=== PATIENT | male | born 1975 | race Caucasian/White ===

== ENCOUNTER 2019-07-23 12:45 | Emergency (ER) | payer OTHER ==
--- OUTSIDE RECORDS SUMMARY | 2019-07-23 12:48 | XMS REPORT | Clinical Summary ---
:[address] [facility] Address [address] [place] [address] Care Team Providers Name Role Phone Kameron Primary Care Provider Allergies No Known Allergies Medications Medication Sig Dispensed Refills Start Date End Date Status amlodipine-benazepril Take 1 capsule by 0 Active (LOTREL) 5-40 mg per mouth daily. capsule ibuprofen Take 800 mg by 0 Activ e (ADVIL,MOTRIN) 800 MG mouth every 6 tablet (six) hours as needed for Pain. traMADol (ULTRAM) 50 Take 50 mg by 0 Active mg tablet mouth every 6 (six) hours as needed for Pain. tiZANidine (ZANAFLEX) Take 4 mg by mouth 0 Active 4 MG tablet every 6 (six) hours as needed. Active Problems Problem Noted Date Pain 03/19/2017 Upper back pain on right side 03/18/2017 Essential hypertension 03/18/2017 Radicular pain 03/17/2017 Social History Tobacco Use Types Packs/Day Years Used Date Never Smoker Smokeless Tobacco: Never Used Sex Assigned at Date Recorded Not on file Job Start Date Occupation Industry Not on file Not on file Not on file Travel History Travel Start Travel End No recent travel history available. Last Filed Vital Signs Not on file Plan of Treatment Not on file Implants Implanted Type Area Assembler For Puller Over Hand Device Shelf Model / Identifier Expiration Serial / Date Lot Tiss Live Puty Dbm Optium 1cc Tput01 - [id number] Bone N/A: Spine LIFENET:LIFENET 08/06/2019 [id number] / Implanted: Qty: 1 on 03/23/2017 by Shubham Adames MD Cervical TRANSPLANT SRV [id number] / Matrix Floseal Hemo W/O Ndl 10 [id number] - [id number] Cement/Fi N/A: Spine JIMENEZ:BIOSCI 08/04/2018 [id number] / Implanted: Qty: 1 on 03/23/2017 by Shubham Adames MD lle r/Adhe Cervical / sive [id number] Bone Grft Vitoss Ba2x 1.2cc - [id number] Cement/Fi N/A: Spine ORTHOVI TA 06/20/2018 [id number] / Implanted: Qty: 1 on 03/23/2017 by Shubham Adames MD lle r/Adhe Cervical / sive [id number] Tritanium C [id number] Anterior Cervical Cage Spine N/A: Spine CHAN:CHAN 12/15/2021 [id number] / Implanted: Qty: 1 on 03/23/2017 by Shubham Adames MD Cervical SPINE / [id number] Plt Aviater 12mm [id number] - [id number] Spine N/A: Spine CHAN:STR YKER [id number] / Implanted: Qty: 1 on 03/23/2017 by Shubham Adames MD Cervical ORTHOPAEDICS / Scr Sd 14mm [id number] - [id number] Spine N/A: Spine CHAN:CHAN [id number] / Implanted: Qty: 4 on 03/23/2017 by Shubham Adames MD Cervical ORTHOPAEDICS / Results Not on fileafter 07/22/2018 Insurance Payer Benefit Plan / Group Subscriber ID Type Phone A ddress [employer] - [employer] CARE [employer] HMO POS QPOS xxxxxxxxx HMO/POS Advance Directives For more information, please contact:[address] [phone] Code Status Date Activated Date Inactivated Comments Full Code 03/17/2017 9:35 PM 03/24/2017 2:46 PM This code status was determined by: Patient
--- OUTSIDE RECORDS SUMMARY | 2019-07-23 12:48 | XMS REPORT ---
:1975 Author Organization [facility] t Address [address] Ern[place] [address] [place] [id number] Care Team Providers Name Role Phone Dick BOYD Attending Clinician Unavailable Dick BOYD Admitting Clinician Unavailable Problems This patient has no known problems. Allergies, Adverse Reactions, Alerts This patient has no known allergies or adverse reactions. Medications This patient has no known medications. Procedures This patient has no known procedures. Results Test Description Test Time Test Comments Results Result [facility] e Comments SHORT-LATENCY INTRAOPERATIVE MONITORING SPE, ALL LIMBS 5 REPORT Patient Name: Guille 08:36:00 [place] [facility] Surgery Date: March 23, 2017 [place] Pro: [id number] Monitoring began at 1519 and finished at 1838 Surgeon: Shubham Adames MD Examining Physician : Coleen Joyner [facility] Monitoring Technologist: ROYAL Jackson Procedure: ACDF C6-C7 Stimulation Parameters:Ulnar nerves individually stimulated at the wristRate 4.7Hz, Intensity 35mA, Duration 0.3msPosterior Tibial nerves individually stimulated at the ankleRate 4.7Hz, Intensity 70mA, Duration 0.3msFilters 30-500Hz, Notch Off Motor strip stimulated anterior to C3 and C4 with alternating polaritiesIntensity 100-500V, Train Rate 4-5, LUAN 2-3msFilters 30-2KHz, Notch OffRecording Parameters: CS5, CP3, CP4, CPz, and FPz,Transcranial electrical Motor Evoked Potentials recorded from Abductor Pollicis Brevis referenced to theAbductor Digiti Quinti Minimi and Adductor Hallucis muscle groups. Description:Intraoperative neurophysiological monitoring was performed using a combination of upper and lowerextremity somatosensory evoked potentials and transcranial electrical motor evoked potentials (TceMEP). Areal-time connection with the examining neurologist was established and maintained throughout theoperative procedure by the monitoring technologist. Upper extremity somatosensory evoked potentials wererecorded centrally at the cervical and cortical levels following ulnar nerve stimulation. Lower extremitysomatosensory evoked potentials were recorded centrally at the cervical and cortical levels followingposterior tibial nerve stimulation at the ankle. Upper and lower SSEPs were well formed and reproducible atbaseline. All SSEPs were stable with baselines throughout procedure with no changes. TcMEPs wereattempted and recorded peripherally from the upper and lower extremities following alternating polaritymotor strip stimulation. TcMEPs were not obtainable at baselines or throughout the procedure. Multipletroubleshooting attempts were made with no changes. Surgeon aware and agreed to forgo MEPs and justrun SSEPs. Conclusion:These results suggest the absence of untoward, secondary effects on posterior column function as aconsequence of this surgical procedure. Coleen Joyner, AKJcWR41.12, M54.10 UE EXAM Surgical Pathology Report 1 Case: 14:50:00 [id number] Authorizing Provider: Shubham Adames MD Collected: 03/23/2017 1744 Ordering Location: [address] Received: 03/24/2017 0810 Service Pathologist: Yoshi Montiel MD Specimen: Disc C6-7 VERTEBRAL COLUMN, INTERVERTEBRAL DISC, C6-7, DISCECTOMY:FRAGMENTS OF FIBROCARTILAGE WITH MILD DEGENERATIVE CHANGES Signing Pathologist Direct Phone Line: [phone] signed by Yoshi Montiel MD on 03/26/2017 at 2:50 [id number]; [id number] radiculopathy Disc C6-7Received in saline labeled "disc C6-7" is a 3.5 x 2.5 x 0.3 cm aggregate of pink-huang to dobson-white, rubbery, fibrillar, cartilaginous and osseous tissue. Section Crews Activities Clerk sections are submitted in cassette A1 for decalcification. KAH/DB/ew Performed [place], DIRECTOR DATA PROCESSING IN 2017-02-24 Reason for FINAL REPORT PATIENT ID: OR/30 MINUTE 9 exam:->Cervic [id number] Examination: INCREMENTS 23:26:00 al stenosis Intraoperative evaluation 2 fluoroscopic spot views were obtained during the procedure by the ordering service. Images are nondiagnostic as no radiologist was present at the time of imaging. Fluoroscopic exposure was 1.31 mGy. Please see the procedure report for details. Signed: Malvin Palmer Verified Date/Time: 03/23/2017 23:26:48 Reading Location: [facility] C013Y CT Body Reading Room , [place], 2017-02-24 Reason for FINAL REPORT PATIENT ID: CERVICAL, 1 VIEW 9 exam:->Cervic [id number] Fluoroscopy. 17:07:00 al stenosis History: Cervical stenosis. Intraoperative localization Findings:Surgical instrument projects at the C6-C7 level anteriorly Fluoroscopy Time: 0.0 min.Reference Air Kerma (Ka, r): 2.65 mGy. IMPRESSION:Surgical clips are projecting at C6-C7 anteriorly. Signed: Mir Varma Verified Date/Time: 03/23/2017 17:07:23 Reading Location: [facility] C013W Consult Reading Room C METABOLIC PANEL 2017-03-23 04:30:00 Test Item Value Reference Range Interpretation Comme nts SODIUM (BEAKER) (test code 136 meq/L 136-145 = 381) POTASSIUM (BEAKER) (test 4.4 meq/L 3.5-5.1 Spe cimen slightly code = 379) hemolyzed CHLORIDE (BEAKER) (test 104 meq/L 98-107 code = 382) CO2 (BEAKER) (test code = 27 meq/L 22-29 355) BLOOD UREA NITROGEN 18 mg/dL 7-21 (BEAKER) (test code = 354) CREATININE (BEAKER) (test 0.83 mg/dL 0.57-1.25 Sp ecimen slightly code = 358) hemolyzed GLUCOSE RANDOM (BEAKER) 104 mg/dL 70-105 (test code = 652) CALCIUM (BEAKER) (test 8.7 mg/dL 8.4-10.2 code = 697) EGFR (BEAKER) (test code = 102 mL/min/1.73 sq m ESTIMATED GFR IS NOT 1092) ACCURATE CRE ATININE CLEARANCE IN UT EDICTING GLOMERULAR FILT RATION RATE. ESTIMATED GFR IS NOT APPLICABLE FOR DIALYSIS PATIENTS. CBC W/PLT COUNT & AUTO [id number] 04:14:00 Test Item Value Reference Range Interpretation Comments WHITE BLOOD CELL COUNT (BEAKER) 7.9 K/ L 3.5-10.5 (test code = 775) RED BLOOD CELL COUNT (BEAKER) 4.34 M/ L 4.63-6.08 L (test code = 761) HEMOGLOBIN (BEAKER) (test code = 13.2 GM/DL 13.7-17.5 L 410) HEMATOCRIT (BEAKER) (test code = 38.8 % 40.1-51.0 L 411) MEAN CORPUSCULAR VOLUME (BEAKER) 89.4 fL 79.0-92.2 (test code = 753) MEAN CORPUSCULAR HEMOGLOBIN 30.4 pg 25.7-32.2 (BEAKER) (test code = 751) MEAN CORPUSCULAR HEMOGLOBIN CONC 34.0 GM/DL 32.3-36.5 (BEAKER) (test code = 752) RED CELL DISTRIBUTION WIDTH 12.5 % 11.6-14.4 (BEAKER) (test code = 412) PLATELET COUNT (BEAKER) (test 189 K/CU MM 150-450 code = 756) MEAN PLATELET VOLUME (BEAKER) 9.6 fL 9.4-12.4 (test code = 754) NUCLEATED RED BLOOD CELLS 0 /100 WBC 0-0 (BEAKER) (test code = 413) NEUTROPHILS RELATIVE PERCENT 67 % (BEAKER) (test code = 429) LYMPHOCYTES RELATIVE PERCENT 23 % (BEAKER) (test code = 430) MONOCYTES RELATIVE PERCENT 7 % (BEAKER) (test code = 431) EOSINOPHILS RELATIVE PERCENT 2 % (BEAKER) (test code = 432) BASOPHILS RELATIVE PERCENT 1 % (BEAKER) (test code = 437) NEUTROPHILS ABSOLUTE COUNT 5.33 K/ L 1.78-5.38 (BEAKER) (test code = 670) LYMPHOCYTES ABSOLUTE COUNT 1.80 K/ L 1.32-3.57 (BEAKER) (test code = 414) MONOCYTES ABSOLUTE COUNT (BEAKER) 0.55 K/ L 0.30-0.82 (test code = 415) EOSINOPHILS ABSOLUTE COUNT 0.18 K/ L 0.04-0.54 (BEAKER) (test code = 416) BASOPHILS ABSOLUTE COUNT (BEAKER) 0.04 K/ L 0.01-0.08 (test code = 417) IMMATURE GRANULOCYTES-RELATIVE 0 % 0-1 PERCENT (BEAKER) (test code = 2801) RAD, CHEST, 1 VIEW, NON [id number] 11:20:00Reason for exam:->pre-opShould this be performed at the bedside?->YesFINAL REPORT AP view of the chest dated 03/21/2017 CLINICAL INFORMATION: pre-op Comment: Heart is normal in size. Pulmonary vasculature is unremarkable. Lungs are clear. No pulmonary infiltrate or pleural effusion is present. Impression: No active cardiopulmonary disease. Signed: Vicente Hendricks Verified Date/Time: 03/21/2017 11:20:01 Reading Location: [facility] C0X Ortho Consult Reading Room CBC W/PLT COUNT & AUTO [id number] 08:48:00 Test Item Value Reference Range Interpretation Comments WHITE BLOOD CELL COUNT (BEAKER) 7.8 K/ L 3.5-10.5 (test code = 775) RED BLOOD CELL COUNT (BEAKER) 4.68 M/ L 4.63-6.08 (test code = 761) HEMOGLOBIN (BEAKER) (test code = 14.6 GM/DL 13.7-17.5 410) HEMATOCRIT (BEAKER) (test code = 42.6 % 40.1-51.0 411) MEAN CORPUSCULAR VOLUME (BEAKER) 91.0 fL 79.0-92.2 (test code = 753) MEAN CORPUSCULAR HEMOGLOBIN 31.2 pg 25.7-32.2 (BEAKER) (test code = 751) MEAN CORPUSCULAR HEMOGLOBIN CONC 34.3 GM/DL 32.3-36.5 (BEAKER) (test code = 752) RED CELL DISTRIBUTION WIDTH 12.8 % 11.6-14.4 (BEAKER) (test code = 412) PLATELET COUNT (BEAKER) (test 147 K/CU MM 150-450 L code = 756) MEAN PLATELET VOLUME (BEAKER) 10.9 fL 9.4-12.4 (test code = 754) NUCLEATED RED BLOOD CELLS 0 /100 WBC 0-0 (BEAKER) (test code = 413) NEUTROPHILS RELATIVE PERCENT 56 % (BEAKER) (test code = 429) LYMPHOCYTES RELATIVE PERCENT 33 % (BEAKER) (test code = 430) MONOCYTES RELATIVE PERCENT 9 % (BEAKER) (test code = 431) EOSINOPHILS RELATIVE PERCENT 2 % (BEAKER) (test code = 432) BASOPHILS RELATIVE PERCENT 1 % (BEAKER) (test code = 437) NEUTROPHILS ABSOLUTE COUNT 4.38 K/ L 1.78-5.38 (BEAKER) (test code = 670) LYMPHOCYTES ABSOLUTE COUNT 2.54 K/ L 1.32-3.57 (BEAKER) (test code = 414) MONOCYTES ABSOLUTE COUNT (BEAKER) 0.68 K/ L 0.30-0.82 (test code = 415) EOSINOPHILS ABSOLUTE COUNT 0.14 K/ L 0.04-0.54 (BEAKER) (test code = 416) BASOPHILS ABSOLUTE COUNT (BEAKER) 0.05 K/ L 0.01-0.08 (test code = 417) IMMATURE GRANULOCYTES-RELATIVE 0 % 0-1 PERCENT (BEAKER) (test code = 2801) [id number] 06:20:00 Test Item Value Reference Range Interpretation Comments MAGNESIUM (BEAKER) 2.0 mg/dL 1.6-2.6 Specimen slightly (test code = 627) hemolyzed [id number] 06:20:00 Test Item Value Reference Range Interpretation Comments PHOSPHORUS (BEAKER) 3.5 mg/dL 2.3-4.7 Specimen slightly (test code = 604) hemolyzed BASIC METABOLIC [id number] 06:20:00 Test Item Value Reference Range Interpretation Comments SODIUM (BEAKER) 140 meq/L 136-145 (test code = 381) POTASSIUM (BEAKER) 4.3 meq/L 3.5-5.1 Specimen slightly (test code = 379) hemolyzed CHLORIDE (BEAKER) 106 meq/L 98-107 (test code = 382) CO2 (BEAKER) (test 26 meq/L 22-29 code = 355) BLOOD UREA NITROGEN 21 mg/dL 7-21 (BEAKER) (test code = 354) CREATININE (BEAKER) 0.81 mg/dL 0.57-1.25 Specimen slightly (test code = 358) hemolyzed GLUCOSE RANDOM 94 mg/dL 70-105 (BEAKER) (test code = 652) CALCIUM (BEAKER) 8.6 mg/dL 8.4-10.2 (test code = 697) EGFR (BEAKER) (test 105 mL/min/1.73 ESTIM ATED GFR IS code = 1092) sq m NOT ACCURATE CREATININE CLEARANCE IN PREDICTING GLOMERULAR FILTRATION RATE . ESTIMATED GFR I S NOT APPLICABLE FOR DIALYSIS PATIEN TS. HEPATIC FUNCTION [id number] 06:20:00 Test Item Value Reference Range Interpretation Comments TOTAL PROTEIN (BEAKER) 6.0 gm/dL 6.0-8.3 Speci men slightly (test code = 770) hemolyzed ALBUMIN (BEAKER) (test 3.5 g/dL 3.5-5.0 Speci men slightly code = 1145) hemolyzed BILIRUBIN TOTAL 0.5 mg/dL 0.2-1.2 Specimen sli ghtly (BEAKER) (test code = hemoly zed 377) BILIRUBIN DIRECT 0.2 mg/dL 0.1-0.5 Specimen sl ightly (BEAKER) (test code = hemoly zed 706) ALKALINE PHOSPHATASE 50 U/L 40-150 (BEAKER) (test code = 346) AST (SGOT) (BEAKER) 30 U/L 5-34 Specimen slightly (test code = 353) hemolyzed ALT (SGPT) (BEAKER) 51 U/L 6-55 Specimen slightly (test code = 347) hemolyzed [id number] 06:52:00 Test Item Value Reference Range Interpretation Comments PHOSPHORUS (BEAKER) (test code = 2.9 mg/dL 2.3-4.7 604) [id number] 06:52:00 Test Item Value Reference Range Interpretation Comments MAGNESIUM (BEAKER) (test code = 2.0 mg/dL 1.6-2.6 627) BASIC METABOLIC [id number] 06:52:00 Test Item Value Reference Range Interpretation Comments SODIUM (BEAKER) 138 meq/L 136-145 (test code = 381) POTASSIUM (BEAKER) 4.2 meq/L 3.5-5.1 (test code = 379) CHLORIDE (BEAKER) 107 meq/L 98-107 (test code = 382) CO2 (BEAKER) (test 25 meq/L 22-29 code = 355) BLOOD UREA NITROGEN 22 mg/dL 7-21 H (BEAKER) (test code = 354) CREATININE (BEAKER) 0.85 mg/dL 0.57-1.25 (test code = 358) GLUCOSE RANDOM 97 mg/dL 70-105 (BEAKER) (test code = 652) CALCIUM (BEAKER) 8.3 mg/dL 8.4-10.2 L (test code = 697) EGFR (BEAKER) (test 99 mL/min/1.73 ESTIMA FERMIN GFR IS code = 1092) sq m NOT ACCURATE CREATININE CLEARANCE IN PREDICTING GLOMERULAR FILTRATION RATE . ESTIMATED GFR I S NOT APPLICABLE FOR DIALYSIS PATIEN TS. HEPATIC FUNCTION [id number] 06:52:00 Test Item Value Reference Range Interpretation Comments TOTAL PROTEIN (BEAKER) (test code = 5.6 gm/dL 6.0-8.3 L 770) ALBUMIN (BEAKER) (test code = 1145) 3.4 g/dL 3.5-5.0 L BILIRUBIN TOTAL (BEAKER) (test code 0.5 mg/dL 0.2-1.2 = 377) BILIRUBIN DIRECT (BEAKER) (test 0.2 mg/dL 0.1-0.5 code = 706) ALKALINE PHOSPHATASE (BEAKER) (test 45 U/L 40-150 code = 346) AST (SGOT) (BEAKER) (test code = 13 U/L 5-34 353) ALT (SGPT) (BEAKER) (test code = 24 U/L 6-55 347) CBC W/PLT COUNT & AUTO [id number] 06:31:00 Test Item Value Reference Range Interpretation Comments WHITE BLOOD CELL COUNT (BEAKER) 7.7 K/ L 3.5-10.5 (test code = 775) RED BLOOD CELL COUNT (BEAKER) 4.30 M/ L 4.63-6.08 L (test code = 761) HEMOGLOBIN (BEAKER) (test code = 13.2 GM/DL 13.7-17.5 L 410) HEMATOCRIT (BEAKER) (test code = 39.0 % 40.1-51.0 L 411) MEAN CORPUSCULAR VOLUME (BEAKER) 90.7 fL 79.0-92.2 (test code = 753) MEAN CORPUSCULAR HEMOGLOBIN 30.7 pg 25.7-32.2 (BEAKER) (test code = 751) MEAN CORPUSCULAR HEMOGLOBIN CONC 33.8 GM/DL 32.3-36.5 (BEAKER) (test code = 752) RED CELL DISTRIBUTION WIDTH 12.9 % 11.6-14.4 (BEAKER) (test code = 412) PLATELET COUNT (BEAKER) (test 199 K/CU MM 150-450 code = 756) MEAN PLATELET VOLUME (BEAKER) 9.6 fL 9.4-12.4 (test code = 754) NUCLEATED RED BLOOD CELLS 0 /100 WBC 0-0 (BEAKER) (test code = 413) NEUTROPHILS RELATIVE PERCENT 53 % (BEAKER) (test code = 429) LYMPHOCYTES RELATIVE PERCENT 38 % (BEAKER) (test code = 430) MONOCYTES RELATIVE PERCENT 8 % (BEAKER) (test code = 431) EOSINOPHILS RELATIVE PERCENT 1 % (BEAKER) (test code = 432) BASOPHILS RELATIVE PERCENT 1 % (BEAKER) (test code = 437) NEUTROPHILS ABSOLUTE COUNT 4.06 K/ L 1.78-5.38 (BEAKER) (test code = 670) LYMPHOCYTES ABSOLUTE COUNT 2.90 K/ L 1.32-3.57 (BEAKER) (test code = 414) MONOCYTES ABSOLUTE COUNT (BEAKER) 0.63 K/ L 0.30-0.82 (test code = 415) EOSINOPHILS ABSOLUTE COUNT 0.07 K/ L 0.04-0.54 (BEAKER) (test code = 416) BASOPHILS ABSOLUTE COUNT (BEAKER) 0.05 K/ L 0.01-0.08 (test code = 417) IMMATURE GRANULOCYTES-RELATIVE 0 % 0-1 PERCENT (BEAKER) (test code = 2801) CREATINE KINASE (CK), TOTAL AND [id number] 17:02:00 Test Item Value Reference Range Interpretation Comments CREATINE KINASE TOTAL (BEAKER) 93 U/L 29-200 (test code = 380) CREATINE KINASE-MB (BEAKER) (test 0.9 ng/mL 0.0-6.6 code = 750) CREATINE KINASE-MB INDEX (BEAKER) 1.0 % (test code = 395) CK-MB Reference Range:<6.7 Normal6.7-10.0 Borderline>10.0 AbnormalTROPONIN [id number] 17:02:00 Test Item Value Reference Range Interpretation Comments TROPONIN I (BEAKER) (test code = 397) < ng/mL 0.00-0.03 Troponin I (TnI) levels must be interpreted in the context of the presenting symptoms and the clinical findings. Elevated TnI levels indicate myocardial damage, but are not specific for ischemic heart disease. Elevated TnI levels are seen in patients with other cardiac conditions (including myocarditis and congestive heart failure), and slight TnI elevations occur in patients with other conditions, including sepsis, renal failure, acidosis, acute neurological disease, and persistent tachyarrhythmia.RAPID DRUG SCREEN, [id number] 12:53:00 Test Item Value Reference Range Interpretation Comments BARBITURATE URINE (BEAKER) (test Negative Negative code = 725) BENZODIAZEPINE SCREEN URINE (BEAKER) Positive Negative A (test code = 726) COCAINE (METAB.) SCREEN (BEAKER) Negative Negative (test code = 1164) METHADONE SCREEN (BEAKER) (test code Negative Negative = 1436) OPIATE SCREEN URINE (BEAKER) (test Positive Negative A code = 734) CANNABINOID SCREEN URINE (BEAKER) Negative Negative (test code = 727) AMPH/METHAMPH SCREEN (BEAKER) (test Negative Negative code = 1438) PHENCYCLIDINE SCREEN URINE (BEAKER) Negative Negative (test code = 608) OXYCODONE SCREEN URINE (BEAKER) Negative Negative (test code = 2761) DRUG CUTOFF CONC.Cocaine 300 ng/mL Cannabinoid 50 ng/mL Benzodiazepine 200 ng/mLBarbiturate 200 ng/mLPhencyclidine 25 ng/mLOpiate 300 ng/mLMethadone 300 ng/mLAmphetamine/ 1000 ng/mL MethamphetamineOxycodone 300 ng/mLThis assay provides an unconfirmed qualitative test result for the clinical management of patients in emergency situations. Chain of custody not maintained. Some kteb-jrr-rsczvee medications, as well as adulterants, may cause inaccurate results. Clinical correlation should be applied. A more comprehensive drug screen or confirmation of a detected drug may be performed upon request. HEMOGLOBIN [id number] 09:05:00 Test Item Value Reference Range Interpretation Comments HEMOGLOBIN A1C (BEAKER) (test code = 4.7 % 4.3-6.1 368) CREATINE KINASE (CK), TOTAL AND [id number] 09:00:00 Test Item Value Reference Range Interpretation Comments CREATINE KINASE TOTAL (BEAKER) 100 U/L 29-200 (test code = 380) CREATINE KINASE-MB (BEAKER) (test 1.1 ng/mL 0.0-6.6 code = 750) CREATINE KINASE-MB INDEX (BEAKER) 1.1 % (test code = 395) CK-MB Reference Range:<6.7 Normal6.7-10.0 Borderline>10.0 AbnormalTROPONIN [id number] 09:00:00 Test Item Value Reference Range Interpretation Comments TROPONIN I (BEAKER) (test code = 397) < ng/mL 0.00-0.03 Troponin I (TnI) levels must be interpreted in the context of the presenting symptoms and the clinical findings. Elevated TnI levels indicate myocardial damage, but are not specific for ischemic heart disease. Elevated TnI levels are seen in patients with other cardiac conditions (including myocarditis and congestive heart failure), and slight TnI elevations occur in patients with other conditions, including sepsis, renal failure, acidosis, acute neurological disease, and persistent tachyarrhythmia.SEDIMENTATION [id number] 06:05:00 Test Item Value Reference Range Interpretation Comments SEDIMENTATION RATE, ERYTHROCYTE 17 mm/HR 0-15 H (BEAKER) (test code = 766) TSH/FREE T4 IF [id number] 05:42:00 Test Item Value Reference Range Interpretation Comments THYROID STIMULATING HORMONE 0.40 uIU/mL 0.35-4.94 (BEAKER) (test code = 772) [id number] 04:41:00 Test Item Value Reference Range Interpretation Comments PHOSPHORUS (BEAKER) (test code = 3.1 mg/dL 2.3-4.7 604) [id number] 04:41:00 Test Item Value Reference Range Interpretation Comments MAGNESIUM (BEAKER) (test code = 1.9 mg/dL 1.6-2.6 627) BASIC METABOLIC [id number] 04:41:00 Test Item Value Reference Range Interpretation Comments SODIUM (BEAKER) 137 meq/L 136-145 (test code = 381) POTASSIUM (BEAKER) 4.1 meq/L 3.5-5.1 (test code = 379) CHLORIDE (BEAKER) 105 meq/L 98-107 (test code = 382) CO2 (BEAKER) (test 23 meq/L 22-29 code = 355) BLOOD UREA NITROGEN 16 mg/dL 7-21 (BEAKER) (test code = 354) CREATININE (BEAKER) 0.85 mg/dL 0.57-1.25 (test code = 358) GLUCOSE RANDOM 129 mg/dL 70-105 H (BEAKER) (test code = 652) CALCIUM (BEAKER) 9.1 mg/dL 8.4-10.2 (test code = 697) EGFR (BEAKER) (test 99 mL/min/1.73 ESTIMA FERMIN GFR IS code = 1092) sq m NOT ACCURATE CREATININE CLEARANCE IN PREDICTING GLOMERULAR FILTRATION RATE . ESTIMATED GFR I S NOT APPLICABLE FOR DIALYSIS PATIEN TS. LIPID [id number] 04:41:00 Test Item Value Reference Range Interpretation Comments TRIGLYCERIDES (BEAKER) (test code = 77 mg/dL 540) CHOLESTEROL (BEAKER) (test code = 173 mg/dL 631) HDL CHOLESTEROL (BEAKER) (test code 45 mg/dL = 976) LDL CHOLESTEROL CALCULATED (BEAKER) 113 mg/dL (test code = 633) Triglyceride Reference Range: Low Risk <150 Borderline 150-199 High Risk 200-499 Very High Risk >=500Cholesterol Reference Range: Low Risk <200 Borderline 200-239 High Risk >240HDL Cholesterol Reference Range: Low Risk >=60 High Risk <40LDL Cholesterol Reference Range: Optimal <100 Near Optimal 100-129 Borderline 130-159 High 160-189 Very High >=190HEPATIC FUNCTION [id number] 04:41:00 Test Item Value Reference Range Interpretation Comments TOTAL PROTEIN (BEAKER) (test code = 6.8 gm/dL 6.0-8.3 770) ALBUMIN (BEAKER) (test code = 1145) 3.9 g/dL 3.5-5.0 BILIRUBIN TOTAL (BEAKER) (test code 1.3 mg/dL 0.2-1.2 H = 377) BILIRUBIN DIRECT (BEAKER) (test 0.4 mg/dL 0.1-0.5 code = 706) ALKALINE PHOSPHATASE (BEAKER) (test 54 U/L 40-150 code = 346) AST (SGOT) (BEAKER) (test code = 15 U/L 5-34 353) ALT (SGPT) (BEAKER) (test code = 25 U/L 6-55 347) CREATINE KINASE (CK), TOTAL AND [id number] 04:41:00 Test Item Value Reference Range Interpretation Comments CREATINE KINASE TOTAL (BEAKER) 100 U/L 29-200 (test code = 380) CREATINE KINASE-MB (BEAKER) (test 1.1 ng/mL 0.0-6.6 code = 750) CREATINE KINASE-MB INDEX (BEAKER) 1.1 % (test code = 395) CK-MB Reference Range:<6.7 Normal6.7-10.0 Borderline>10.0 AbnormalC-REACTIVE [id number] 04:41:00 Test Item Value Reference Range Interpretation Comments C-REACTIVE PROTEIN (BEAKER) (test 0.44 mg/dL 0.00-0.50 code = 676) TROPONIN [id number] 04:35:00 Test Item Value Reference Range Interpretation Comments TROPONIN I (BEAKER) (test code = 397) < ng/mL 0.00-0.03 Troponin I (TnI) levels must be interpreted in the context of the presenting symptoms and the clinical findings. Elevated TnI levels indicate myocardial damage, but are not specific for ischemic heart disease. Elevated TnI levels are seen in patients with other cardiac conditions (including myocarditis and congestive heart failure), and slight TnI elevations occur in patients with other conditions, including sepsis, renal failure, acidosis, acute neurological disease, and persistent tachyarrhythmia.[id number] 04:22:00 Test Item Value Reference Range Interpretation Comments PROTIME (BEAKER) (test code = 13.8 seconds 11.7-14.7 759) INR (BEAKER) (test code = 370) 1.1 <=5.9 PARTIAL THROMBOPLASTIN TIME 28.2 seconds 22.5-36.0 (BEAKER) (test code = 760) RECOMMENDED COUMADIN/WARFARIN INR THERAPY RANGESSTANDARD DOSE: 2.0 - 3.0 Includes: PROPHYLAXIS forvenous thrombosis, systemic embolization; TREATMENT for venous thrombosis and/or pulmonary embolus.HIGH RISK: Target INR is 2.5-3.5 for patients with mechanical heart valves.CBC W/PLT COUNT & AUTO DIFFERENTIAL 2017-03-18 04:17:00 Test Item Value Reference Range Interpretation Comments WHITE BLOOD CELL COUNT (BEAKER) 9.6 K/ L 3.5-10.5 (test code = 775) RED BLOOD CELL COUNT (BEAKER) 4.77 M/ L 4.63-6.08 (test code = 761) HEMOGLOBIN (BEAKER) (test code = 14.5 GM/DL 13.7-17.5 410) HEMATOCRIT (BEAKER) (test code = 41.9 % 40.1-51.0 411) MEAN CORPUSCULAR VOLUME (BEAKER) 87.8 fL 79.0-92.2 (test code = 753) MEAN CORPUSCULAR HEMOGLOBIN 30.4 pg 25.7-32.2 (BEAKER) (test code = 751) MEAN CORPUSCULAR HEMOGLOBIN CONC 34.6 GM/DL 32.3-36.5 (BEAKER) (test code = 752) RED CELL DISTRIBUTION WIDTH 12.3 % 11.6-14.4 (BEAKER) (test code = 412) PLATELET COUNT (BEAKER) (test 254 K/CU MM 150-450 code = 756) MEAN PLATELET VOLUME (BEAKER) 9.4 fL 9.4-12.4 (test code = 754) NUCLEATED RED BLOOD CELLS 0 /100 WBC 0-0 (BEAKER) (test code = 413) NEUTROPHILS RELATIVE PERCENT 87 % (BEAKER) (test code = 429) LYMPHOCYTES RELATIVE PERCENT 10 % (BEAKER) (test code = 430) MONOCYTES RELATIVE PERCENT 2 % (BEAKER) (test code = 431) EOSINOPHILS RELATIVE PERCENT 0 % (BEAKER) (test code = 432) BASOPHILS RELATIVE PERCENT 0 % (BEAKER) (test code = 437) NEUTROPHILS ABSOLUTE COUNT 8.33 K/ L 1.78-5.38 H (BEAKER) (test code = 670) LYMPHOCYTES ABSOLUTE COUNT 0.96 K/ L 1.32-3.57 L (BEAKER) (test code = 414) MONOCYTES ABSOLUTE COUNT (BEAKER) 0.23 K/ L 0.30-0.82 L (test code = 415) EOSINOPHILS ABSOLUTE COUNT 0.00 K/ L 0.04-0.54 L (BEAKER) (test code = 416) BASOPHILS ABSOLUTE COUNT (BEAKER) 0.01 K/ L 0.01-0.08 (test code = 417) IMMATURE GRANULOCYTES-RELATIVE 0 % 0-1 PERCENT (BEAKER) (test code = 2801)
[2019-07-23 14:06] VITALS: BP 140/90; TEMP 97.8; O2SAT 100
--- NOTE | 2019-07-25 17:56 | EDPHYS ---
Physician Documentation [facility] Name: Guille Easton Age: 43 yrs Sex: Male : 1975 Arrival Date: 07/23/2019 Time: 12:47 Bed 5 Private MD: ED Physician Cliff Thomas HPI: 07/22 13:50 This 43 yrs old Male presents to ER via Ambulatory with complaints of Finger jr8 Laceration. 13:50 The patient or guardian reports a laceration, irregular, complex, 2.5 cm(s), ragged. jr8 The complaints affect the palmar aspect of distal phalanx of left thumb. Onset: The symptoms/episode began/occurred acutely, today. Modifying factors: The symptoms are alleviated by nothing, the symptoms are aggravated by nothing. Associated signs and symptoms: The patient has no apparent associated signs or symptoms. Severity of symptoms: At their worst the symptoms were mild, in the emergency department the symptoms are unchanged. The patient has not experienced similar symptoms in the past. The patient has not recently seen a physician. Patient stated that he accidently lacerated left thumb with table saw. Historical: - Allergies: 12:57 No Known Allergies; em - Home Meds: 12:57 amlodipine oral [Active]; em - PMHx: 12:57 Hypertension; em - PSHx: 12:57 None; em - Immunization history:: Adult Immunizations up to date. - Social history:: Smoking status: Patient denies any tobacco usage or history of. ROS: 13:50 Eyes: Negative for injury, pain, redness, and discharge, ENT: Negative for injury, jr8 pain, and discharge, Neck: Negative for injury, pain, and swelling, Cardiovascular: Negative for chest pain, palpitations, and edema, Respiratory: Negative for shortness of breath, cough, wheezing, and pleuritic chest pain, Abdomen/GI: Negative for abdominal pain, nausea, vomiting, diarrhea, and constipation, Back: Negative for injury and pain, MS/Extremity: Negative for injury and deformity, Neuro: Negative for headache, weakness, numbness, tingling, and seizure. 13:50 Skin: Positive for laceration(s), of the palmar aspect of distal phalanx of left thumb. Exam: 13:50 Eyes: Pupils equal round and reactive to light, extra-ocular motions intact. Lids and jr8 lashes normal. Conjunctiva and sclera are non-icteric and not injected. Cornea within normal limits. Periorbital areas with no swelling, redness, or edema. ENT: Nares patent. No nasal discharge, no septal abnormalities noted. Tympanic membranes are normal and external auditory canals are clear. Oropharynx with no redness, swelling, or masses, exudates, or evidence of obstruction, uvula midline. Mucous membranes moist. Neck: Trachea midline, no thyromegaly or masses palpated, and no cervical lymphadenopathy. Supple, full range of motion without nuchal rigidity, or vertebral point tenderness. No Meningismus. Cardiovascular: Regular rate and rhythm with a normal S1 and S2. No gallops, murmurs, or rubs. Normal PMI, no JVD. No pulse deficits. Respiratory: Lungs have equal breath sounds bilaterally, clear to auscultation and percussion. No rales, rhonchi or wheezes noted. No increased work of breathing, no retractions or nasal flaring. Abdomen/GI: Soft, non-tender, with normal bowel sounds. No distension or tympany. No guarding or rebound. No evidence of tenderness throughout. Back: No spinal tenderness. No costovertebral tenderness. Full range of motion. MS/ Extremity: Pulses equal, no cyanosis. Neurovascular intact. Full, normal range of motion. Neuro: Awake and alert, GCS 15, oriented to person, place, time, and situation. Cranial nerves II-XII grossly intact. Motor strength 5/5 in all extremities. Sensory grossly intact. Cerebellar exam normal. Normal gait. 13:50 Skin: Patient has irregular laceration to pad of left thumb. At most .3 cm deep. Some avulsion of skin noted. Vital Signs: 12:52 BP 140 / 90; Pulse 71; Resp 20; Temp 97.8; Pulse Ox 100% on R/A; Weight 129.27 kg; em Height 6 ft. 2 in. (187.96 cm); Pain 6/10; 13:40 BP 156 / 88; Pulse 76; Resp 18; Temp 98.7; Pulse Ox 99% on R/A; Pain 0/10; ch 12:52 Body Mass Index 36.59 (129.27 kg, 187.96 cm) em MDM: 13:22 Patient medically screened. jr8 13:42 Data reviewed: vital signs, nurses notes, and as a result, I will discharge patient. jr8 Data interpreted: Pulse oximetry: on room air is 100 %. Interpretation: normal. Counseling: I had a detailed discussion with the patient and/or guardian regarding: the historical points, exam findings, and any diagnostic results supporting the discharge/admit diagnosis, the need for outpatient follow up, a family practitioner, to return to the emergency department if symptoms worsen or persist or if there are any questions or concerns that arise at home. 13:50 ED course: Discussed with patient that there is not a lot we can do suturing anna due jr8 to type of laceration. Patient is ok with this and glad we cleaned and dressed it. Will put on Abx. Up to date on tetanus . Administered Medications: No medications were administered Disposition: 15:35 Co-signature as Attending Physician, Cliff Thomas MD I agree with the assessment and kdr plan of care. Disposition: 07/23/19 13:43 Discharged to Home. Impression: Laceration without foreign body of left thumb without damage to nail. - Condition is Stable. - Discharge Instructions: Laceration Care, Adult. - Prescriptions for Keflex 500 mg Oral Capsule - take 1 capsule by ORAL route every 8 hours for 7 days; 21 capsule. - Medication Reconciliation Form, Thank You Letter, Antibiotic Education, Prescription Opioid Use form. - Follow up: Private Physician; When: As needed; Reason: Wound Recheck, Recheck today's complaints, Continuance of care, Re-evaluation by your physician. - Problem is new. - Symptoms have improved. Signatures: Cliff Thomas MD MD [facility] Dao Lopez RN RN em Smirch, Shelby, RN RN ss Roszak, Josh, PA PA jr8 Corrections: (The following items were deleted from the chart) 14:00 13:43 07/23/2019 13:43 Discharged to Home. Impression: Laceration without foreign body ss of left thumb without damage to nail. Condition is Stable. Forms are Medication Reconciliation Form, Thank You Letter, Antibiotic Education, Prescription Opioid Use. Follow up: Private Physician; When: As needed; Reason: Wound Recheck, Recheck today's complaints, Continuance of care, Re-evaluation by your physician. Problem is new. Symptoms have improved. jr8
--- NOTE | 2019-07-25 17:56 | ER ---
Nurse's Notes [facility] Name: Guille Easton Age: 43 yrs Sex: Male : 1975 Arrival Date: 07/23/2019 Time: 12:47 Bed 5 Private MD: Diagnosis: Laceration without foreign body of left thumb without damage to nail Presentation: 07/22 12:52 Chief complaint: Patient states: was using table saw and cut into the left thumb about em 30 minutes ago, lac. noted to the left thumb, no bleeding noted. Coronavirus screen: Proceed with normal triage. Patient denies a cough. Patient denies shortness of breath or difficulty breathing. Patient denies measured and/or subjective temperature greater than 100.4F prior to today's visit. Patient denies travel on a cruise ship or to a country the [facility] currently lists as an affected area. Patient denies contact with known and/or suspected case of COVID-19. Ebola Screen: Patient negative for fever greater than or equal to 101.5 degrees Fahrenheit, and additional compatible Ebola Virus Disease symptoms Patient denies exposure to infectious person. Patient denies travel to an Ebola-affected area in the 21 days before illness onset. No symptoms or risks identified at this time. Initial Sepsis Screen: Does the patient meet any 2 criteria? No. Patient's initial sepsis screen is negative. Does the patient have a suspected source of infection? Yes: Skin breakdown/wound. Risk Assessment: Do you want to hurt yourself or someone else? Patient reports no desire to harm self or others. Onset of symptoms was July 23, 2019. 12:52 Method Of Arrival: Ambulatory em 12:52 Acuity: BRENDAN 3 em Historical: - Allergies: 12:57 No Known Allergies; em - Home Meds: 12:57 amlodipine oral [Active]; em - PMHx: 12:57 Hypertension; em - PSHx: 12:57 None; em - Immunization history:: Adult Immunizations up to date. - Social history:: Smoking status: Patient denies any tobacco usage or history of. Screenin:00 Abuse screen: Denies threats or abuse. Denies injuries from another. Nutritional ss screening: No deficits noted. Tuberculosis screening: Never had TB. Fall Risk None identified. Assessment: 13:21 Reassessment: Patient appears in no apparent distress at this time. Patient and/or family updated on plan of care and expected duration. Pain level reassessed. Patient is alert, oriented x 3, equal unlabored respirations, skin warm/dry/pink. General: Appears in no apparent distress. comfortable, Behavior is calm, cooperative, appropriate for age. Pain: Complains of pain in palmar aspect of distal phalanx of left thumb Pain currently is 2 out of 10 on a pain scale. Pain began suddenly. Neuro: No deficits noted. Cardiovascular: No deficits noted. Respiratory: No deficits noted. GI: No signs and/or symptoms were reported involving the gastrointestinal system. : No signs and/or symptoms were reported regarding the genitourinary system. Derm: Skin is dry, Skin is pink, warm \T\ dry. Skin temperature is warm Wound noted dorsal aspect of distal phalanx of left thumb and palmar aspect of distal phalanx of left thumb Wound is pt has chunks of skin taken out, down to sub cutanious. is a rectangle shape of macerated tissue, approx 1.5 cm in length. Vital Signs: 12:52 BP 140 / 90; Pulse 71; Resp 20; Temp 97.8; Pulse Ox 100% on R/A; Weight 129.27 kg; em Height 6 ft. 2 in. (187.96 cm); Pain 6/10; 13:40 BP 156 / 88; Pulse 76; Resp 18; Temp 98.7; Pulse Ox 99% on R/A; Pain 0/10; ch 12:52 Body Mass Index 36.59 (129.27 kg, 187.96 cm) em ED Course: 12:47 Patient arrived in ED. ag5 12:56 Triage completed. em 12:57 Arm band placed on. em 13:00 Patient has correct armband on for positive identification. Bed in low position. Call light in reach. Side rails up X 1. 13:00 NIBP on. 13:00 Wound care:. 13:21 Ethel Pichardo, [place] is Primary Nurse. ch 13:22 Kenneth Meadows PA is PHCP. jr8 13:22 Cliff Thomas MD is Attending Physician. jr8 13:59 No provider procedures requiring assistance completed. Patient did not have IV access ss during this emergency room visit. Wound care: to abrasion, located on palmar aspect of distal phalanx of left thumb was cleaned with Betadine, dressed with Neosporin, 4X4s, Kerlix. Administered Medications: No medications were administered Outcome: 13:43 Discharge ordered by . devyn 13:55 Discharged to home ambulatory. 13:55 Condition: stable 13:55 Discharge instructions given to patient, Instructed on discharge instructions, follow up and referral plans. medication usage, Demonstrated understanding of instructions, follow-up care, medications. 14:00 Patient left the ED. ss Signatures: Ethel Pichardo, RN RN Dao Lopez RN RN Calista Choudhary RN RN Kenneth Meadows, PA PA 8 Adriana Estes ag5 Corrections: (The following items were deleted from the chart) 13:04 12:52 Chief complaint: Patient states: was using table saw and cut into the left thumb, em lac. noted to the left thumb, no bleeding noted em 13:04 12:52 Acuity: BRENDAN 4 em em 15:12 15:11 BP 156 / 88; Pulse 76bpm; Resp 18bpm; Pulse Ox 99% RA; Temp 98.7F; Pain 0/10; ch
== END 2019-07-23 14:00 | disposition home or self-care (01) ==
LOC: ER 12:45
DX: S61.012A Laceration without foreign body of left thumb without damage to nail, initial encounter (principal); W31.2XXA Contact with powered woodworking and forming machines, initial encounter; I10 Essential (primary) hypertension
CPT/HCPCS: 99283